=== PATIENT | male | born 1980 | race Two or more races ===

== ENCOUNTER 2018-02-14 11:40 | Emergency (ER) | payer MEDICAID, OTHER ==
[~2018-02-14] VITALS: Ht 185.4 cm; Wt 89.4 kg
[2018-02-14 11:40] VITALS: BP 139/85
== END 2018-02-14 12:14 | disposition home or self-care (01) ==
LOC: ER 11:43
DX: S86.111A Strain of other muscle(s) and tendon(s) of posterior muscle group at lower leg level, right leg, initial encounter (principal); F10.10 Alcohol abuse, uncomplicated; I10 Essential (primary) hypertension; X58.XXXA Exposure to other specified factors, initial encounter; Y93.89 Activity, other specified; Y92.89 Other specified places as the place of occurrence of the external cause; Y99.8 Other external cause status
CPT/HCPCS: A4606; Z7610

== ENCOUNTER → 2019-10-07 | Emergency (ER) | payer MEDICAID ==
--- NOTE | 2019-10-07 16:10 | NUR ---
Called no response per medical receptionist medical assistant Luana "he left to package pick up son"
== END | disposition left against medical advice (07) ==
LOC: ER 15:59
DX: Z53.21 Procedure and treatment not carried out due to patient leaving prior to being seen by health care provider (principal)

== ENCOUNTER 2019-10-22 14:39 | Emergency (ER) | payer MEDICAID ==
[~2019-10-22] VITALS: Ht 185.4 cm; Wt 90.7 kg
[2019-10-22 15:27] VITALS: BP 145/93
[2019-10-22] MEDS ORDERED: IBUPROFEN 600 MG TABLET PO ONE (17:00)
== END 2019-10-22 18:47 | disposition home or self-care (01) ==
LOC: ER 14:40
DX: J02.9 Acute pharyngitis, unspecified (principal); K13.70 Unspecified lesions of oral mucosa; R53.83 Other fatigue; I10 Essential (primary) hypertension; F10.10 Alcohol abuse, uncomplicated; Y90.9 Presence of alcohol in blood, level not specified

== ENCOUNTER 2019-12-05 08:36 | Emergency (ER) | payer MEDICAID ==
[~2019-12-05] VITALS: Ht 185.4 cm; Wt 93.0 kg
--- NOTE | 2019-12-05 08:44 | NUR ---
PATIENT FELL THIS MORNING, C/O R KNEE , ANKLE AND AND FOOT PAIN. TO ER BED 1, HOOKED TO MONITOR, AWAITING MD SALDIVAR.
--- NOTE | 2019-12-05 08:45 | NUR ---
DR SANTAMARIA AT BEDSIDE
--- NOTE | 2019-12-05 09:58 | NUR ---
TECH AT BEDSIDE FOR APPLICATION OF WALKING BOOT
[2019-12-05] MEDS ORDERED: HYDROCODONE/APAP 10/325MG 1 EA TABLET PO ONE (10:00)
[2019-12-05] MEDS ORDERED: HYDROCODONE/APAP 5/325MG 1 EACH TABLET ONE (10:07)
--- NOTE | 2019-12-05 10:17 | NUR ---
Patient discharged to home in stable condition. Written and verbal after care instructions given. Patient verbalizes understanding of instruction.
[2019-12-05 10:20] VITALS: BP 112/68
== END 2019-12-05 10:21 | disposition home or self-care (01) ==
LOC: ER 08:38
DX: S80.01XA Contusion of right knee, initial encounter (principal); S90.01XA Contusion of right ankle, initial encounter; W10.8XXA Fall (on) (from) other stairs and steps, initial encounter; Y93.89 Activity, other specified; Y92.89 Other specified places as the place of occurrence of the external cause; Y99.8 Other external cause status
CPT/HCPCS: 73564-TC; 73610-TC; 73630-TC

== ENCOUNTER 2024-12-26 19:42 | Emergency (ER) | payer MEDICAID, OTHER ==
[~2024-12-26] VITALS: Ht 185.4 cm; Wt 103.4 kg
[2024-12-26 20:07] VITALS: BP 147/97; TEMP 98; O2SAT 98
== END 2024-12-26 22:01 | disposition left against medical advice (07) ==
LOC: ER 19:47
DX: I10 Essential (primary) hypertension (principal); Z53.21 Procedure and treatment not carried out due to patient leaving prior to being seen by health care provider